=== PATIENT | male | born 1970 | race Caucasian/White ===

== ENCOUNTER 2021-10-23 15:52 | Emergency (ER) | payer OTHER, SELFPAY ==
[2021-10-23 16:03] VITALS: BP 135/78; PULSE 96; RESP 16; TEMP 36.3; O2SAT 99
--- NOTE | 2021-10-23 16:14 | ED.SKABFB ---
HPI - Skin/Abscess/Foreign Bdy General Chief complaint: Skin/Abscess/Foreign Body Stated complaint: Left middle finger injury Time Seen by Provider: 10/23/21 16:15 Source: patient Mode of arrival: ambulatory Limitations: no limitations History of Present Illness HPI narrative: Mr. Polk is a 51-year-old male patient presenting to the clinic today with complaints of an infection to his left third finger x2 days. He reports he recently clipped his nails and thinks he may have cut the skin that cause this infection. He denies any hangnail or ingrown fingernail. He denies biting his fingernail. Related Data Allergies Allergy/AdvReac Type Severity Reaction Status Date / Time No Known Allergies Allergy Mild Unverified 06/22/11 21:13 Review of Systems Review of Systems: Pertinent positives per HPI. Patient denies any fever, chills, rash, headache, visual changes, dizziness, cough, runny nose, sore throat, shortness of breath, chest pain, palpitations, nausea, vomiting, diarrhea, constipation, abdominal pain, or any urinary issues. PMFSH Comments At the time of my signature, I reviewed and agree with the nursing past medical, surgical, social, and family history. There is no relevant family history pertinent to the patient complaint. Exam Narrative: General: Well-developed, well nourished, in no apparent distress Cardio: Regular rate and rhythm, s1 and s2 normal, no murmur appreciated. Resp: Clear to auscultation bilaterally, no rhonchi, rales, wheezing or rubs. Extremity: Redness, swelling, and tenderness to palpation over the left third lateral distal finger with mild bloody exudate. Integumentary: [place], warm, and dry, intact without lesion, no rashes. Course Course Emergency Course: Portions of this record may have been created with voice recognition software. Level of Care: [facility] Visit Vital Signs Vital signs: Vital Signs Temperature 36.3 C L 10/23/21 16:03 Pulse Rate 96 10/23/21 16:03 Respiratory Rate 16 10/23/21 16:03 Blood Pressure 135/78 10/23/21 16:03 Pulse Oximetry 99 10/23/21 16:03 Temperature 36.3 C L 10/23/21 16:03 Pulse Rate 96 10/23/21 16:03 Respiratory Rate 16 10/23/21 16:03 Blood Pressure 135/78 10/23/21 16:03 Pulse Oximetry 99 10/23/21 16:03 Vital signs reviewed MDM - Skin/Abscess/Foreign Bdy MDM Narrative Medical decision making narrative: At the time of visit patient has very mild bloody exudate coming from the left third distal finger along the nail and skin. Mildly tender with some redness without abscess. Will place on a course of doxycycline and have him soak in Epsom salt. No obvious ingrown fingernail seen with exam. Discharge Plan Discharge Clinical Impression: Paronychia Condition: Stable Instructions: [place] (ED) Additional Instructions: Keep clean and dry Soak in Epsom salt/warm water 2-3 times per day. Doxycycline as prescribed Avoid biting fingernails. If symptoms persist may return to the [facility] or go to your primary care provider. Prescriptions: New doxycycline monohydrate 100 mg capsule 100 mg PO BID 7 Days Qty: 14 RF: 0 Follow-up/Referrals: Patricia Coy MD [Primary Care Provider] - Time of Disposition: 16:17 Quality NIHSS Nursing Documentation ED NIHSS nursing documentation: reviewed/agree
== END 2021-10-23 16:20 | disposition home or self-care (01) ==
PROVIDERS: Emergency Provider Nurse Practitioner Family; PCP Family Medicine
DX: L03.012 Cellulitis of left finger (principal)
CPT/HCPCS: 99213; G0463